=== PATIENT | male | born 1985 | race Caucasian/White ===

== ENCOUNTER 2019-05-24 03:19 | Emergency (ER) | payer SELFPAY ==
[2019-05-24] MEDS ORDERED: MAG HYDROX/ALUMINUM HYD/SIMETH 30 ML, Lidocaine 2% Viscous 15 ML PO ONE ×2 (03:46)
--- NOTE | 2019-05-24 04:17 | ED Physician Documentation ---
Abdominal Pain - HISTORIAN Historian: patient - HPI Stated Complaint: Intermittent upper abdominal pain from a recurrent condition Chief Complaint: Abdominal Pain Additonal Information: 34 year old male [place] with upper abdominal discomfort; states he has had it for years; intermittent; usually last for a little while and then goes away; he is laughing and joking; no acute distress. States he was suppose to follow up with GI specialist but has not made it yet. Denies any nausea or vomiting; diarrhea but that is normal for him. Onset: hours Duration: gradual Timing: better Context: denies: out of country travel, bad food Severity: mild Quality: burning Associated Symptoms: denies: fever, chills, nausea, vomiting Exacerbated by: nothing Relieved by: nothing - ROS CONST: no problems GI/: none CVS/RESP: none EYES/ENT: none MS/SKIN/LYMPH: none NEURO/PSYCH: none - SOCIAL HX Smoking History: less than 1 pack/day Alcohol Use: none Drug Use: none - FAMILY HX Family History: none - PAST HX Past History: GERD Immunizations: UTD Home Medications: Ambulatory Orders Medication Instructions Recorded NK 05/24/19 Allergies/Adverse Reactions: Allergies Allergy/AdvReac Type Severity Reaction Status Date / Time amoxicillin Allergy Verified 05/24/19 03:38 - VITAL SIGNS Vital Signs: Vital Signs Temp Pulse Resp BP Pulse Ox 98 F 74 18 139/89 99 05/24/19 03:27 05/24/19 03:27 05/24/19 03:27 05/24/19 03:27 05/24/19 03:27 - REVIEWED ASSESSMENTS Nursing Assessment Reviewed: Yes Vitals Reviewed: Yes ED Results Lab/Radiology - Orders Orders: ED Orders Category Date Time Status CBC/PLATELET/DIFF Routine Lab 05/24/19 04:02 Received CMP Routine Lab 05/24/19 04:02 Received LIPASE Stat Lab 05/24/19 04:02 Received Mag Hydrox/Aluminum Hyd/Simeth [Mylanta] 30 ml Med 05/24/19 03:46 Discontinued Lidocaine 2% Viscous [Xylocaine 2% Viscous] 15 ml PO NOW Abdominal Pain Physical Exam - Physical Exam General Appearance: no acute distress, alert EENT: eye inspection normal, ENT inspection normal, pharynx normal, no signs of dehydration, JOHNATHAN NECK: normal inspection RESPIRATORY: breath sounds normal CVS: heart sounds normal ABDOMEN: soft, normal bowel sounds BACK: normal inspection SKIN: warm/dry, normal color EXTREMITIES: non-tender, normal range of motion, no evidence of injury NEURO: oriented X3, CN's nml as tested, motor nml, sensation nml, mood/affect nml, cognition normal Vital Signs: Vital Signs Temp Pulse Resp BP Pulse Ox 98 F 74 18 139/89 99 05/24/19 03:27 05/24/19 03:27 05/24/19 03:27 05/24/19 03:27 05/24/19 03:27 Discharge Clincal Impression: GERD (gastroesophageal reflux disease) Referrals: Primary Doctor,No [Primary Care Provider] - 2 Days Additional Instructions: Start taking Omeprazole 20 mg daily for acid reflux Increase water intake > 64oz Will diet Follow up with PCP when you get home Condition: Good Disposition: 01 HOME, SELF-CARE Decision to Admit: NO Decision Time: 04:22
[2019-05-24 04:32] VITALS: BP 121/88
[2019-05-24 07:38] LABS: BASOPHILS % 0.8 % (0.0-1.5)
[2019-05-24 07:39] LABS: eGFR (Non-African) > 60
== END 2019-05-24 04:20 | disposition home or self-care (01) ==
LOC: ED 03:19
DX: K21.9 Gastro-esophageal reflux disease without esophagitis (principal)
CPT/HCPCS: 80053; 83690; 85025; 99282; 99283; A9270; S1016